=== PATIENT | male | born 1985 | race Caucasian/White ===

== ENCOUNTER 2022-09-28 04:18 | Emergency (ER) | payer OTHER ==
[~2022-09-28] VITALS: Ht 177.8 cm; Wt 70.3 kg
[2022-09-28 05:25] LABS: BASOPHILS # (AUTO) 0.2 K/UL (0.0-0.2); EOSINOPHILS # (AUTO) 0.4 K/uL (0.0-0.7); EOSINOPHILS % (AUTO) 2.4 % (0.0-7.0); HEMATOCRIT 28.3 % (36.7-47.1); HEMOGLOBIN 9.3 g/dL (12.5-16.3); LYMPHOCYTES # (AUTO) 2.5 K/uL (0.8-4.8); LYMPHOCYTES % (AUTO) 14.4 % (20.5-51.5); MEAN CORPUSCULAR HEMOGLOBIN 27.3 uug (23.8-33.4); MEAN CORPUSCULAR HGB CONC 33 g/dL (32.5-36.3); MEAN CORPUSCULAR VOLUME 82.8 fL (73.0-96.2); MONOCYTES # (AUTO) 1.1 K/uL (0.1-1.30); MONOCYTES % (AUTO) 6.2 % (0.0-11.0); NEUTROPHILS # (AUTO) 13.2 K/uL (1.8-8.9); PLATELET COUNT (AUTO) 365 K/uL (152-348); RED BLOOD CELL COUNT(AUTO) 3.41 MIL/uL (4.06-5.63); WHITE BLOOD COUNT (AUTO) 17.3 K/uL (3.6-10.2)
[2022-09-28 05:29] LABS: DIFFERENTIAL COMMENT 1
[2022-09-28 05:35] LABS: CALCIUM 7.9 mg/dL (8.5-10.1); CARBON DIOXIDE 19 mmol/L (21-32); CHLORIDE 97 mmol/L (98-107); GLUCOSE 232 mg/dL (74-106); SODIUM SERUM 130 mmol/L (136-145); UREA NITROGEN, BLOOD 71 mg/dL (7-18)
[2022-09-28 05:39] LABS: CREATININE 8.1 mg/dL (0.6-1.3)
[2022-09-28 05:41] LABS: ALANINE AMINOTRANSFERASE < 6 U/L (16-63); ALKALINE PHOSPHATASE 141 U/L (50-136); ASPARTATE AMINOTRANSFERASE < 5 U/L (15-37); BILIRUBIN,DIRECT < 0.1 mg/dL (0.0-0.2); BILIRUBIN,TOTAL 0.2 mg/dL (0.2-1.0); LIPASE 68 U/L (73-393); TOTAL PROTEIN, SERUM 6.2 g/dL (6.4-8.2)
[2022-09-28 05:45] LABS: ALBUMIN 0.9 g/dL (3.4-5.0)
[2022-09-28] MEDS ORDERED: CEFTRIAXONE 1 G in IV DEXTROSE 5% 50 ML IV ONE (06:15)
[2022-09-28] MEDS ORDERED: CEFTRIAXONE /D5W 50ML IVPB **ER PYXIS IV ONE (06:18)
[2022-09-28] MEDS ORDERED: hydrALAZINE HCL 20 MG/1 ML VIAL ONE (15:27)
[2022-09-28] MEDS ORDERED: hydrALAZINE HCL 20 MG/1 ML VIAL IV ONE (15:30)
[2022-09-28 15:32] VITALS: BP 169/111
[2022-09-28 17:41] VITALS: O2SAT 99
== END 2022-09-28 18:46 | disposition short-term general hospital (02) ==
LOC: ER 04:27
DX: J18.9 Pneumonia, unspecified organism (principal); R10.9 Unspecified abdominal pain; R11.2 Nausea with vomiting, unspecified; R19.7 Diarrhea, unspecified; D72.829 Elevated white blood cell count, unspecified; L03.315 Cellulitis of perineum; I12.0 Hypertensive chronic kidney disease with stage 5 chronic kidney disease or end stage renal disease; N18.6 End stage renal disease; Z99.2 Dependence on renal dialysis; F17.210 Nicotine dependence, cigarettes, uncomplicated; Z86.2 Personal history of diseases of the blood and blood-forming organs and certain disorders involving the immune mechanism; Z20.822 Contact with and (suspected) exposure to COVID-19
CPT/HCPCS: 36415; 71045; 83690; 85025; 87040; A4663; J0360; J0696